=== PATIENT | female | born 1960 | race African-American/Black ===

== ENCOUNTER 2017-07-25 02:08 | Emergency (ER) | payer OTHER ==
[~2017-07-25] VITALS: Ht 160 cm; Wt 78.0 kg
[2017-07-25] MEDS ORDERED: LORazepam Inj 2mg/ml 1ml IV ONE (02:30)
[2017-07-25] MEDS ORDERED: OMEPRAZOLE40 M1 ORAL (02:39)
[2017-07-25] MEDS ORDERED: HYDROCHLOROTH12.5 M2 ORAL (02:39)
[2017-07-25] MEDS ORDERED: VITAMIN B-121000 MCG PO (02:39)
[2017-07-25] MEDS ORDERED: FOLIC ACID1 MG ORAL (02:39)
[2017-07-25] MEDS ORDERED: FERROUS SULFAT325 MG ORAL (02:39)
[2017-07-25 03:20] LABS: MEAN CORPUSCULAR HEMOGLOBIN 33.2 PG (27.0-31.0); MEAN CORPUSCULAR HGB CONC 32.9 G/DL (32.0-36.0); MEAN CORPUSCULAR VOLUME 101 FL (80-99); MEAN PLATELET VOLUME 8.8 FL (6.5-10.1); PLATELET COUNT 99 K/UL (150-450); RED BLOOD COUNT 4.05 M/UL (4.20-5.40); RED CELL DISTRIBUTION WIDTH 14.5 % (11.6-14.8); WHITE BLOOD COUNT 4.6 K/UL (4.8-10.8)
[2017-07-25 03:21] LABS: APPEARANCE,URINE CLOUDY; KETONES,URINE NEGATIVE (NEGATIVE); LEUKOCYTE ESTERASE ,URINE 2+ (NEGATIVE); NITRITE,URINE POSITIVE (NEGATIVE); PH,URINE 6 (4.5-8.0); PROTEIN,URINE NEGATIVE (NEGATIVE); UROBILINOGEN,URINE NORMAL MG/DL (0.0-1.0)
[2017-07-25 03:29] LABS: ANION GAP 9 mmol/L (5-15); CALCIUM 8.8 MG/DL (8.5-10.1); CARBON DIOXIDE 22 MMOL/L (21-32); CHLORIDE 107 MMOL/L (98-107); CREATININE 1.1 MG/DL (0.55-1.30); GLOMERULAR FILTRATION RATE > 60 mL/min (>60); POTASSIUM 3.3 MMOL/L (3.5-5.1); SODIUM 138 MMOL/L (136-145)
[2017-07-25 03:33] VITALS: BP 118/74
[2017-07-25 03:34] LABS: BACTERIA,URINE MANY /HPF; SQUAMOUS EPITHELIAL CELL,UR FEW /LPF (NONE/OCC); WBC,URINE 20-30 /HPF (0 - 2)
[2017-07-25 03:41] LABS: EOSINOPHILS % (MANUAL) 2 % (0-3); LYMPHOCYTES % (MANUAL) 21 % (20-45); NEUTROPHILS % (MANUAL) 69 % (45-75); TOTAL CELLS COUNTED 100
[2017-07-25 03:42] LABS: BAND NEUTROPHILS % (MANUAL) 0 % (0-8); BASOPHILS % (MANUAL) 0 % (0-2); PLATELET ESTIMATE DECREASED; PLATELET MORPHOLOGY NORMAL
[2017-07-25 03:43] LABS: ALANINE AMINOTRANSFERASE 93 U/L (12-78); ALBUMIN/GLOBULIN RATIO 0.4 (1.0-2.7); ASPARTATE AMINO TRANSFERASE 115 U/L (15-37); CKMB 1.6 NG/ML (0.0-3.6); TOTAL PROTEIN 8.5 G/DL (6.4-8.2)
[2017-07-25 03:45] LABS: BILIRUBIN,DIRECT 1.9 MG/DL (0.0-0.3)
[2017-07-25] MEDS ORDERED: cefTRIAXone 1 GM in NS 55 ML IVPB ONE (03:45)
[2017-07-25 05:29] VITALS: BP 107/66
[2017-07-25] MEDS ORDERED: MACROBID100 MG ORAL (05:37)
--- NOTE | 2017-07-25 05:37 | Emergency Room Report ---
History of Present Illness General Chief Complaint: Chest Pain Source: Patient Present Illness HPI Is a 56-year-old female with history high blood pressure and pacemaker insertion. She presents with chief complaint of pain over the pacemaker site and generalized pain. She said she was very anxious because when she tried opening her car door handle broke off. That sent her into anxiety during complaining of generalized pain. His been ongoing for the last several hours for denies any nausea vomiting. Denies any fever or chills. Pain is 10 out of 10. No exertional component. Allergies: Coded Allergies: CODEINE (Verified Allergy, Unknown, 07/25/17) Patient History Past Medical History: see triage record, old chart reviewed, HTN Past Surgical History: pacemaker Pertinent Family History: none Social History: Reports: smoking Last Menstrual Period: surgical hysterectomy Now: No Immunizations: other Reviewed Nursing Documentation: PMH: Agreed, PSxH: Agreed Nursing Documentation-PMH Hx Hypertension: Yes Hx Pacemaker: Yes Hx Gastrointestinal Problems: Yes - HEP C,GI BLEED Review of Systems Eye: Denies: eye pain, blurred vision ENT: Denies: ear pain, nose congestion, throat swelling Respiratory: Denies: cough, shortness of breath Cardiovascular: Reports: chest pain, Denies: palpitations Gastrointestinal: Denies: abdominal pain, diarrhea, nausea, vomiting Musculoskeletal: Denies: back pain, joint pain Skin: Denies: rash Neurological: Denies: headache, numbness Endocrine: Denies: increased thirst, increased urine Hematologic/Lymphatic: Denies: easy bruising All Other Systems: negative except mentioned in HPI Physical Exam Vital Signs Date Time Temp Pulse Resp B/P (MAP) Pulse Ox O2 Delivery O2 Flow Rate FiO2 07/25/17 02:22 99.0 88 15 162/106 100 Room Air vitals with high blood pressure Sp02 EP Interpretation: reviewed, normal General Appearance: well appearing, no apparent distress, alert Head: normocephalic, atraumatic Eyes: bilateral eye PERRL, bilateral eye EOMI ENT: hearing grossly normal, normal pharynx Neck: full range of motion, supple, no meningismus Respiratory: chest non-tender, lungs clear, normal breath sounds Cardiovascular #1: regular rate, rhythm, no murmur Gastrointestinal: normal bowel sounds, non tender, no mass, no organomegaly, no bruit, non-distended Musculoskeletal: back normal, gait/station normal, normal range of motion Neurologic: alert, oriented x3 Psychiatric: anxious - Crying Skin: warm/dry Medical Decision Making Diagnostic Impression: Primary Impression: Chest pain Qualified Codes: R07.9 - Chest pain, unspecified Additional Impressions: Panic attack Cocaine abuse UTI (urinary tract infection) Qualified Codes: N30.00 - Acute cystitis without hematuria ER Course Patient with atypical chest pain. No evidence of ACS, PE, dissection. She is sleeping comfortably after Ativan. No longer having pain. We'll discharge home. Lab Results Impression labs unremarkable EKG Diagnostic Results Rate: normal Rhythm: NSR ST Segments: no acute changes ASA given to the pt in ED: Yes Rhythm Strip Diag. Results Rhythm Strip Time: 05:36 EP Interpretation: yes Rate: 78 Rhythm: NSR, no PVC's, no ectopy Chest X-Ray Diagnostic Results Chest X-Ray Diagnostic Results : Chest X-Ray Ordered: Yes # of Views/Limited/Complete: 1 View Indication: Chest Pain EP Interpretation: Yes Interpretation: no consolidation, no effusion, no pneumothorax, no acute cardiopulmonary disease Impression: No acute disease Electronically Signed by: Ace Belle MD Last Vital Signs Date Time Temp Pulse Resp B/P (MAP) Pulse Ox O2 Delivery O2 Flow Rate FiO2 07/25/17 05:29 99.0 76 20 107/66 97 Room Air Status: improved Disposition: HOME, SELF-CARE Condition: Stable Scripts Nitrofurantoin Monohyd/M-Cryst (Nitrofurantoin [place]-Mcr 100 mg) 100 Mg Capsule 100 MG ORAL Q12H, #14 CAP Prov: ACE BELLE M.D. 07/25/17 Referrals: [facility] (PCP) Patient Instructions: Nonspecific Chest Pain Additional Instructions: Stop using drugs. Followup with your Dr. in 2-3 days. Return if worse. take your blood pressure medication. ACE BELLE M.D. Jul 25, 2017 05:37
[2017-07-25 05:49] VITALS: BP 107/66
--- NOTE | 2017-07-25 09:29 | Diagnostic Imaging Report ---
Indication: Chest pain Technique: XRAY CHEST 1 V Comparison: None Findings: Cardiac silhouette is borderline prominent. There is a left chest pacemaker. Atherosclerotic changes are seen. There is no consolidation or pleural effusion. Degenerative changes of the spine are noted. Impression: No acute cardiopulmonary disease. Left chest pacemaker.
--- NOTE | 2017-07-25 15:28 | Cardiology Report ---
APPROVED REPORT EKG Measurement Heart [id number] Normal sinus rhythm Biatrial enlargement Abnormal ECG
== END 2017-07-25 05:59 | disposition home or self-care (01) ==
LOC: EMR 03:00
DX: R07.89 Other chest pain (principal); F41.0 Panic disorder [episodic paroxysmal anxiety]; F14.10 Cocaine abuse, uncomplicated; N39.0 Urinary tract infection, site not specified; I10 Essential (primary) hypertension; Z95.0 Presence of cardiac pacemaker; Z88.6 Allergy status to analgesic agent
CPT/HCPCS: 36415; 71010; 80053; 80307; 81003; 82248; 82550; 82553; 84484; 85007; 85025; 87086; 87181; 93005; 96365; 96375; 99284; J0696; 96361; 96374

== ENCOUNTER 2017-09-03 20:14 | Inpatient (IN) | payer OTHER ==
[~2017-09-03] VITALS: Ht 165.1 cm; Wt 79.8 kg
[~2017-09-03 20:14] MED LIST: FERROUS SULFAT325 MG ORAL; FOLIC ACID1 MG ORAL; HYDROCHLOROTH12.5 M2 ORAL; MACROBID100 MG ORAL; OMEPRAZOLE40 M1 ORAL; VITAMIN B-121000 MCG PO
[2017-09-03 21:35] VITALS: BP 130/77
--- NOTE | 2017-09-03 21:35 | Emergency Room Report ---
History of Present Illness General Chief Complaint: Gastrointestinal Bleed Source: Patient Present Illness HPI 57-year-old female presents ED for evaluation. States she's been noticing rectal bleeding the last 3 days. Has history of liver cirrhosis. Also notes nosebleed. Patient states she is not compliant with her medications for her liver cirrhosis. Did not take any blood thinners. Denies fevers or chills. Chest pain. States she's having some cramping abdominal pain as well. 10 out of 10, nonradiating. No other aggravating relieving factors. Denies any other associated symptoms Allergies: Coded Allergies: CODEINE (Verified Allergy, Unknown, 07/25/17) Patient History Past Medical History: HTN Past Surgical History: none, pacemaker Pertinent Family History: none Social History: Denies: smoking, alcohol use, drug use Last Menstrual Period: NA Now: No Immunizations: UTD Reviewed Nursing Documentation: PMH: Agreed, PSxH: Agreed Nursing Documentation-PMH Hx Hypertension: Yes Hx Pacemaker: Yes Hx Gastrointestinal Problems: Yes - HEP C,GI BLEED Review of Systems All Other Systems: negative except mentioned in HPI Physical Exam Vital Signs Date Time Temp Pulse Resp B/P (MAP) Pulse Ox O2 Delivery O2 Flow Rate FiO2 09/03/17 20:26 98.2 Sp02 EP Interpretation: reviewed, normal General Appearance: no apparent distress, alert, GCS 15, non-toxic Head: normocephalic, atraumatic Eyes: bilateral eye normal inspection, bilateral eye PERRL ENT: hearing grossly normal, normal pharynx, no angioedema, normal voice Neck: full range of motion, supple/symm/no masses Respiratory: chest non-tender, lungs clear, normal breath sounds, speaking full sentences Cardiovascular #1: regular rate, rhythm, no edema Cardiovascular #2: 2+ carotid (R), 2+ carotid (L), 2+ radial (R), 2+ radial (L) , 2+ dorsalis pedis (R), 2+ dorsalis pedis (L) Gastrointestinal: normal bowel sounds, non tender, soft, non-distended, no guarding, no rebound Rectal: deferred Genitourinary: normal inspection, no CVA tenderness Musculoskeletal: back normal, gait/station normal, normal range of motion, non- tender Neurologic: alert, oriented x3, responsive, motor strength/tone normal, sensory intact, speech normal Psychiatric: judgement/insight normal, memory normal, mood/affect normal, no suicidal/homicidal ideation Reflexes: 3+ bicep (R), 3+ bicep (L), 3+ tricep (R), 3+ tricep (L), 3+ knee (R) , 3+ knee (L) Skin: normal color, no rash, warm/dry, well hydrated Lymphatic: no adenopathy Medical Decision Making Diagnostic Impression: Primary Impression: LGI bleed Additional Impression: Cirrhosis of liver Qualified Codes: K74.60 - Unspecified cirrhosis of liver ER Course Hospital Course 57-year-old F presents to ED with rectal bleeding Differential diagnoses include: UGIB, LGIB, hemorrhoids Clinical course Patient placed on stretcher. court monitor. After initial history and physical I ordered labs, IV fluids, CT Labs - no leukocytosis, Hb/Hct stable. electrolytes ok, LFTS markedly elevated , coags eleavted EKG - bradycardic, PVCs noted CT A/P - abdominal varices, cirrhosis. given rocephin given h/o cirrhosis Case discussed with Dr. Tipton and he agreed to accept the patient to his service for further care and support I feel this is a highly complex case requiring extensive working including EKG/ Rhythm strip, Xray/CT/US, Blood/urine lab work, repeat exams while in ED, and administration of strong opiates/narcotics for pain control, admission to hospital or close patient follow up. Diagnosis - LGIB, cirrhosis of liver Patient admitted to telemetry in serious condition Labs Test 09/03/17 21:25 White Blood Count 5.7 K/UL (4.8-10.8) Red Blood Count 4.58 M/UL (4.20-5.40) Hemoglobin 14.9 G/DL (12.0-16.0) Hematocrit 47.7 % (37.0-47.0) Mean Corpuscular Volume 104 FL (80-99) Mean Corpuscular Hemoglobin 32.5 PG (27.0-31.0) Mean Corpuscular Hemoglobin Concent 31.2 G/DL (32.0-36.0) Red Cell Distribution Width 14.3 % (11.6-14.8) Platelet Count 82 K/UL (150-450) Mean Platelet Volume 10.3 FL (6.5-10.1) Neutrophils (%) (Auto) % (45.0-75.0) Lymphocytes (%) (Auto) % (20.0-45.0) Monocytes (%) (Auto) % (1.0-10.0) Eosinophils (%) (Auto) % (0.0-3.0) Basophils (%) (Auto) % (0.0-2.0) Differential Total Cells Counted 100 Neutrophils % (Manual) 65 % (45-75) Lymphocytes % (Manual) 19 % (20-45) Monocytes % (Manual) 10 % (1-10) Eosinophils % (Manual) 3 % (0-3) Basophils % (Manual) 3 % (0-2) Band Neutrophils 0 % (0-8) Platelet Estimate Decreased Platelet Morphology Normal Prothrombin Time 14.7 SEC (9.30-11.50) Prothromb Time International Ratio 1.4 (0.9-1.1) Activated Partial Thromboplast Time 26 SEC (23-33) Urine Color Yellow Urine Appearance Clear Urine pH 5 (4.5-8.0) Urine Specific [place] 1.010 (1.005-1.035) Urine Protein Negative (NEGATIVE) Urine Glucose (UA) 4+ (NEGATIVE) Urine Ketones Negative (NEGATIVE) Urine Occult Blood 1+ (NEGATIVE) Urine Nitrite Negative (NEGATIVE) Urine Bilirubin Negative (NEGATIVE) Urine Urobilinogen 1 MG/DL (0.0-1.0) Urine Leukocyte Esterase Negative (NEGATIVE) Urine RBC 0-2 /HPF (0 - 2) Urine WBC 0-2 /HPF (0 - 2) Urine Squamous Epithelial Cells Few /LPF (NONE/OCC) Urine Bacteria Few /HPF (NONE) Sodium Level 138 MMOL/L (136-145) Potassium Level 4.5 MMOL/L (3.5-5.1) Chloride Level 107 MMOL/L (98-107) Carbon Dioxide Level 25 MMOL/L (21-32) Anion Gap 6 mmol/L (5-15) Blood Urea Nitrogen 11 mg/dL (7-18) Creatinine 1.2 MG/DL (0.55-1.30) Estimat Glomerular Filtration Rate 56.2 mL/min (>60) Glucose Level 321 MG/DL (74-106) Calcium Level 9.0 MG/DL (8.5-10.1) Total Bilirubin 3.7 MG/DL (0.2-1.0) Direct Bilirubin 1.4 MG/DL (0.0-0.3) Aspartate Amino Transf (AST/SGOT) 82 U/L (15-37) Alanine Aminotransferase (ALT/SGPT) 93 U/L (12-78) Alkaline Phosphatase 375 U/L (46-116) Ammonia 16 umol/L (11-32) Troponin I 0.007 ng/mL (0.000-0.056) Total Protein 9.3 G/DL (6.4-8.2) Albumin 2.4 G/DL (3.4-5.0) Globulin 6.9 g/dL Albumin/Globulin Ratio 0.3 (1.0-2.7) Lipase 591 U/L (73-393) EKG Diagnostic Results Rate: normal Rhythm: NSR ST Segments: other - PVCS ASA given to the pt in ED: No Rhythm Strip Diag. Results EP Interpretation: yes Rhythm: NSR, no ectopy CT/MRI/US Diagnostic Results CT/MRI/US Diagnostic Results : Imaging Test Ordered: CT A/P Impression cirrhosis, abdominal varices Last Vital Signs Date Time Temp Pulse Resp B/P (MAP) Pulse Ox O2 Delivery O2 Flow Rate FiO2 09/03/17 20:26 98.2 Status: improved Disposition: ADMITTED INPATIENT Condition: Serious Referrals: [facility] (PCP) MICHAEL CARTAGENA M.D. Sep 03, 2017 21:35
[2017-09-03 22:12] LABS: HEMATOCRIT 47.7 % (37.0-47.0); HEMOGLOBIN 14.9 G/DL (12.0-16.0); MEAN CORPUSCULAR VOLUME 104 FL (80-99); PLATELET COUNT 82 K/UL (150-450); RED BLOOD COUNT 4.58 M/UL (4.20-5.40); RED CELL DISTRIBUTION WIDTH 14.3 % (11.6-14.8); WHITE BLOOD COUNT 5.7 K/UL (4.8-10.8)
[2017-09-03 22:15] LABS: APPEARANCE,URINE CLEAR; BILIRUBIN, URINE NEGATIVE (NEGATIVE); GLUCOSE, URINE (UA) 4+ (NEGATIVE); KETONES,URINE NEGATIVE (NEGATIVE); LEUKOCYTE ESTERASE ,URINE NEGATIVE (NEGATIVE); NITRITE,URINE NEGATIVE (NEGATIVE); PH,URINE 5 (4.5-8.0); PROTEIN,URINE NEGATIVE (NEGATIVE); UROBILINOGEN,URINE 1 MG/DL (0.0-1.0)
[2017-09-03 22:18] LABS: COLOR,URINE YELLOW
[2017-09-03 22:19] LABS: INR 1.4 (0.9-1.1)
[2017-09-03 22:24] LABS: AMMONIA 16 umol/L (11-32)
[2017-09-03 22:27] LABS: ANION GAP 6 mmol/L (5-15); BLOOD UREA NITROGEN 11 mg/dL (7-18); CARBON DIOXIDE 25 MMOL/L (21-32); CHLORIDE 107 MMOL/L (98-107); CREATININE 1.2 MG/DL (0.55-1.30); POTASSIUM 4.5 MMOL/L (3.5-5.1); SODIUM 138 MMOL/L (136-145)
[2017-09-03 22:42] LABS: ALANINE AMINOTRANSFERASE 93 U/L (12-78); ALBUMIN 2.4 G/DL (3.4-5.0); ALBUMIN/GLOBULIN RATIO 0.3 (1.0-2.7); ALKALINE PHOSPHATASE 375 U/L (46-116); ASPARTATE AMINO TRANSFERASE 82 U/L (15-37); BILIRUBIN,TOTAL 3.7 MG/DL (0.2-1.0)
[2017-09-03 22:43] LABS: BILIRUBIN,DIRECT 1.4 MG/DL (0.0-0.3)
[2017-09-03] MEDS ORDERED: cefTRIAXone 1 GM in NS 55 ML IVPB ONE (23:00)
[2017-09-03] MEDS ORDERED: Phytonadione 10 MG in D5W 55 ML IVPB ONE (23:15)
[2017-09-03] MEDS ORDERED: Nitroglycerin Subl 0.4mg tab SL PRN (23:15)
[2017-09-03] MEDS ORDERED: Mylanta II UD 30ml ORAL PRN (23:15)
[2017-09-03] MEDS ORDERED: Morphine Sulfate 2mg/ml Inj IVP PRN (23:15)
[2017-09-03] MEDS ORDERED: Miralax 17gm pkt ORAL PRN (23:15)
[2017-09-04] MEDS ORDERED: SPIRONOLACTONE25 MG ORAL (00:08)
[2017-09-04] MEDS ORDERED: AMOXICILLIN500 MG ORAL (00:08)
[2017-09-04 00:10] VITALS: BP 157/89
[2017-09-04 00:40] VITALS: BP 121/84
[2017-09-04] MEDS ORDERED: Phytonadione 10 mg/mL 1ml amp ONE (01:29)
[2017-09-04] MEDS ORDERED: NS 55ml IV ONE (01:29)
[2017-09-04] MEDS: D5NS 1,000 ML IV SCH ×3 (01:46→19:02)
[2017-09-04 04:00] VITALS: BP 117/67
--- NOTE | 2017-09-04 06:35 | General Progress Note ---
Assessment/Plan Problem List: (1) Gastrointestinal hemorrhage ICD Codes: K92.2 - Gastrointestinal hemorrhage, unspecified SNOMED: 45026191 (2) Cirrhosis of liver ICD Codes: K74.60 - Unspecified cirrhosis of liver SNOMED: 96621800 Qualifiers: Qualified Codes: K74.60 - Unspecified cirrhosis of liver (3) LGI bleed ICD Codes: K92.2 - Gastrointestinal hemorrhage, unspecified SNOMED: 55304306 Assessment/Plan octreotide protonix ammonia level monitor H&H and INR plan EGD and colonoscopy on Wednesday Subjective ROS Limited/Unobtainable: Yes Allergies: Coded Allergies: CODEINE (Verified Allergy, Unknown, 07/25/17) Subjective no event over night Objective Last 24 Hour Vital Signs Date Time Temp Pulse Resp B/P (MAP) Pulse Ox O2 Delivery O2 Flow Rate FiO2 09/04/17 04:00 98.1 60 20 117/67 98 Nasal Cannula 09/04/17 04:00 61 09/04/17 00:40 97.0 56 16 121/84 99 09/04/17 00:25 98.2 63 16 157/89 100 Room Air 09/04/17 00:10 98.2 63 16 157/89 100 Room Air 09/03/17 21:35 98.2 42 18 130/77 99 09/03/17 20:26 98.2 Laboratory Tests 09/03/17 21:25: White Blood Count 5.7, Red Blood Count 4.58, Hemoglobin 14.9, Hematocrit 47.7H, Mean Corpuscular Volume 104H, Mean Corpuscular Hemoglobin 32.5H, Mean Corpuscular Hemoglobin Concent 31.2L, Red Cell Distribution Width 14.3, Platelet Count 82L, Mean Platelet Volume 10.3H, Neutrophils (%) (Auto) , Lymphocytes (%) (Auto) , Monocytes (%) (Auto) , Eosinophils (%) (Auto) , Basophils (%) (Auto) , Differential Total Cells Counted 100, Neutrophils % ( Manual) 65, Lymphocytes % (Manual) 19L, Monocytes % (Manual) 10, Eosinophils % ( Manual) 3, Basophils % (Manual) 3H, Band Neutrophils 0, Platelet Estimate DecreasedL, Platelet Morphology Normal, Prothrombin Time 14.7H, Prothromb Time International Ratio 1.4H, Activated Partial Thromboplast Time 26, Urine Color Yellow, Urine Appearance Clear, Urine pH 5, Urine Specific [place] 1.010, Urine Protein Negative, Urine Glucose (UA) 4+H, Urine Ketones Negative, Urine Occult Blood 1+H, Urine Nitrite Negative, Urine Bilirubin Negative, Urine Urobilinogen 1H, Urine Leukocyte Esterase Negative, Urine RBC 0-2, Urine WBC 0-2, Urine Squamous Epithelial Cells Few, Urine Bacteria Few, Sodium Level 138, Potassium Level 4.5, Chloride Level 107, Carbon Dioxide Level 25, Anion Gap 6, Blood Urea Nitrogen 11, Creatinine 1.2, Estimat Glomerular Filtration Rate 56.2, Glucose Level 321H, Calcium Level 9.0, Total Bilirubin 3.7H, Direct Bilirubin 1.4H, Aspartate Amino Transf (AST/SGOT) 82H, Alanine Aminotransferase (ALT/SGPT) 93H, Alkaline Phosphatase 375H, Ammonia 16, Troponin I 0.007, Total Protein 9.3H, Albumin 2.4L, Globulin 6.9, Albumin/Globulin Ratio 0.3L, Lipase 591H Height (Feet): 5 Height (Inches): 3.00 Weight (Pounds): 173 General Appearance: alert EENT: normal ENT inspection Neck: supple Cardiovascular: normal rate Respiratory/Chest: decreased breath sounds Abdomen: normal bowel sounds, non tender, soft Extremities: non-tender ERNST DELUNA Sep 04, 2017 06:35
--- NOTE | 2017-09-04 08:49 | History and Physical ---
History of Present Illness General Date patient seen: Sep 04, 2017 Time patient seen: 07:30 Reason for Hospitalization: Gastrointestinal Bleed Present Illness HPI 57-y/old female with PMH of liver cirrhosis, hep C, prediabetes, HTN , pacemaker presented to ED with c/o rectal bleeding for the last 3 days. Reports nose bleeding as well Not compliant with medications for liver cirrhosis No blood thinners denied f/c/ denied CP , SOB reported abdominal pain 10/10, non radiating with some nausea Lab work revealed elevated LFT and bili, low PLT count INR-1.4 lipase-591 CT A/P with evidence of abdominal varices and liver cirrhosis troponin WNL ECG SB with frequent PVC patient was admitted for further management Allergies: Coded Allergies: CODEINE (Verified Allergy, Unknown, 07/25/17) Medication History Scheduled Amoxicillin* (Amoxil*), 500 MG ORAL EVERY 6 HOURS, (Reported) Cyanocobalamin (Vitamin B-12) (Vitamin B-12), 1,000 MCG PO DAILY, (Reported) Ferrous Sulfate* (Ferrous Sulfate*), 325 MG ORAL DAILY, (Reported) Folic Acid* (Folic Acid*), 1 MG ORAL DAILY, (Reported) Hydrochlorothiazide* (Hydrochlorothiazide*), 12.5 MG ORAL DAILY, (Reported) Nitrofurantoin Monohyd/M-Cryst (Nitrofurantoin [place]-Mcr 100 mg), 100 MG ORAL Q12H Omeprazole (Omeprazole), 40 MG ORAL DAILY, (Reported) Spironolactone* (Aldactone*), 25 MG ORAL DAILY, (Reported) Patient History History Provided By: Patient Healthcare decision maker Resuscitation status Full Code Advanced Directive on File No Past Medical/Surgical History Past Medical/Surgical History: (1) Cirrhosis of liver (2) Pacemaker (3) HTN (hypertension) (4) Hepatitis C Review of Systems Constitutional: Reports: weakness Eye: Reports: no symptoms ENT: Reports: no symptoms Cardiovascular: Reports: no symptoms, other - HTN pacemaker Gastrointestinal: Reports: see HPI Genitourinary: Reports: no symptoms Musculoskeletal: Reports: no symptoms Skin: Reports: dryness Psychiatric: Reports: no symptoms Neurological: Reports: no symptoms Endocrine: Reports: other - prediabetes Hematologic/Lymphatic: Reports: no symptoms Physical Exam General Appearance: no apparent distress, alert Lines, tubes and drains: peripheral HEENT: normocephalic, atraumatic, anicteric Neck: supple Respiratory/Chest: decreased breath sounds Cardiovascular/Chest: regular rhythm, pacemaker/AICD - L chest pacemaker Abdomen: normal bowel sounds, non tender, soft Neurologic: no motor/sensory deficits, alert, oriented x 3, responsive Musculoskeletal: normal muscle bulk Last 24 Hour Vital Signs Date Time Temp Pulse Resp B/P (MAP) Pulse Ox O2 Delivery O2 Flow Rate FiO2 09/04/17 04:00 98.1 60 20 117/67 98 Nasal Cannula 09/04/17 04:00 61 09/04/17 00:40 97.0 56 16 121/84 99 09/04/17 00:25 98.2 63 16 157/89 100 Room Air 09/04/17 00:10 98.2 63 16 157/89 100 Room Air 09/03/17 21:35 98.2 42 18 130/77 99 09/03/17 20:26 98.2 Laboratory Tests Test 09/03/17 21:25 White Blood Count 5.7 K/UL (4.8-10.8) Red Blood Count 4.58 M/UL (4.20-5.40) Hemoglobin 14.9 G/DL (12.0-16.0) Hematocrit 47.7 % (37.0-47.0) H Mean Corpuscular Volume 104 FL (80-99) H Mean Corpuscular Hemoglobin 32.5 PG (27.0-31.0) H Mean Corpuscular Hemoglobin Concent 31.2 G/DL (32.0-36.0) L Red Cell Distribution Width 14.3 % (11.6-14.8) Platelet Count 82 K/UL (150-450) L Mean Platelet Volume 10.3 FL (6.5-10.1) H Neutrophils (%) (Auto) % (45.0-75.0) Lymphocytes (%) (Auto) % (20.0-45.0) Monocytes (%) (Auto) % (1.0-10.0) Eosinophils (%) (Auto) % (0.0-3.0) Basophils (%) (Auto) % (0.0-2.0) Differential Total Cells Counted 100 Neutrophils % (Manual) 65 % (45-75) Lymphocytes % (Manual) 19 % (20-45) L Monocytes % (Manual) 10 % (1-10) Eosinophils % (Manual) 3 % (0-3) Basophils % (Manual) 3 % (0-2) H Band Neutrophils 0 % (0-8) Platelet Estimate Decreased L Platelet Morphology Normal Prothrombin Time 14.7 SEC (9.30-11.50) H Prothromb Time International Ratio 1.4 (0.9-1.1) H Activated Partial Thromboplast Time 26 SEC (23-33) Urine Color Yellow Urine Appearance Clear Urine pH 5 (4.5-8.0) Urine Specific [place] 1.010 (1.005-1.035) Urine Protein Negative (NEGATIVE) Urine Glucose (UA) 4+ (NEGATIVE) H Urine Ketones Negative (NEGATIVE) Urine Occult Blood 1+ (NEGATIVE) H Urine Nitrite Negative (NEGATIVE) Urine Bilirubin Negative (NEGATIVE) Urine Urobilinogen 1 MG/DL (0.0-1.0) H Urine Leukocyte Esterase Negative (NEGATIVE) Urine RBC 0-2 /HPF (0 - 2) Urine WBC 0-2 /HPF (0 - 2) Urine Squamous Epithelial Cells Few /LPF (NONE/OCC) Urine Bacteria Few /HPF (NONE) Sodium Level 138 MMOL/L (136-145) Potassium Level 4.5 MMOL/L (3.5-5.1) Chloride Level 107 MMOL/L (98-107) Carbon Dioxide Level 25 MMOL/L (21-32) Anion Gap 6 mmol/L (5-15) Blood Urea Nitrogen 11 mg/dL (7-18) Creatinine 1.2 MG/DL (0.55-1.30) Estimat Glomerular Filtration Rate 56.2 mL/min (>60) Glucose Level 321 MG/DL (74-106) H Calcium Level 9.0 MG/DL (8.5-10.1) Total Bilirubin 3.7 MG/DL (0.2-1.0) H Direct Bilirubin 1.4 MG/DL (0.0-0.3) H Aspartate Amino Transf (AST/SGOT) 82 U/L (15-37) H Alanine Aminotransferase (ALT/SGPT) 93 U/L (12-78) H Alkaline Phosphatase 375 U/L (46-116) H Ammonia 16 umol/L (11-32) Troponin I 0.007 ng/mL (0.000-0.056) Total Protein 9.3 G/DL (6.4-8.2) H Albumin 2.4 G/DL (3.4-5.0) L Globulin 6.9 g/dL Albumin/Globulin Ratio 0.3 (1.0-2.7) L Lipase 591 U/L (73-393) H Height (Feet): 5 Height (Inches): 3.00 Weight (Pounds): 173 Medications Current Medications Medications (Trade) Dose Ordered Sig/Jad Route PRN Reason Start Time Stop Time Status Last Admin Dose Admin Acetaminophen (Tylenol) 650 mg Q4H PRN ORAL fever 09/03/17 23:15 10/03/17 23:14 Al Hydroxide/Mg Hydroxide (Mylanta II) 30 ml Q6H PRN ORAL dyspepsia 09/03/17 23:15 10/03/17 23:14 Ceftriaxone Sodium (Rocephin) 1 gm DAILY IM 09/04/17 09:00 09/11/17 08:59 UNV Dextrose (Dextrose 50%) STAT PRN IV Hypoglycemia 09/03/17 23:15 10/03/17 23:14 Dextrose/Sodium Chloride 1,000 ml @ 100 mls/hr Q10H IV 09/03/17 23:02 10/03/17 23:01 09/04/17 01:46 Diphenhydramine HCl (Benadryl) 25 mg Q6H PRN ORAL Itching/Pruritis 09/03/17 23:15 10/03/17 23:14 Morphine Sulfate (Morphine Sulfate) 2 mg EVERY 4 HOURS PRN IVP severe Pain (Pain Scale 7-10) 09/03/17 23:15 09/10/17 23:14 Nitroglycerin (Ntg) 0.4 mg Q5M X 3 DOSES PRN SL Prn Chest Pain 09/03/17 23:15 10/03/17 23:14 Octreotide Acetate 500 mcg/ Sodium Chloride 500 ml @ 50 mls/hr Q10H IV 09/04/17 08:00 10/04/17 07:59 Ondansetron HCl (Zofran) 4 mg Q6H PRN IVP Nausea & Vomiting 09/03/17 23:15 10/03/17 23:14 Pantoprazole (Protonix) 40 mg EVERY 12 HOURS IVP 09/04/17 09:00 10/04/17 08:59 Polyethylene Glycol (Miralax) 17 gm HSPRN PRN ORAL Constipation 09/03/17 23:15 10/03/17 23:14 Temazepam (Restoril) 15 mg HSPRN PRN ORAL Insomnia 09/03/17 23:15 09/10/17 23:14 Assessment/Plan Assessment/Plan ASSESSMENT rectal bleeding liver cirrhosis thrombocytopenia transaminitis coagulopathy abdominal varices elevated lipase Hepatitic C HTN pacemaker prediabetes PLAN OF CARE tele GI follows Protonix bid and and Octreotide gtt EGD for Wednesday monitor HH, transfuse prn IVF NPO ammonia WNL trend LFT, lipase, amylase pain management a/emetic prn venous Duplex BLE O2 HHN prn s/p vit Kx 1 currently normotensive, clsoely monitor BP, no anti HTN meds for now check HgA1c, glucose over 300 this am, on IV with dextrose , still high though for prediabetes? case discussed and evaluated by supervising physician Kyle GriffinHali issa NP Sep 04, 2017 08:49
[2017-09-04] MEDS: Pantoprazole Inj IVP SCH ×2 (09:17→20:48)
[2017-09-04] MEDS: Octreotide Acetate 500 MCG in Sodium Chloride 500ML 499 ML IV SCH ×2 (09:17→18:00)
[2017-09-04 12:00] VITALS: BP 119/75
[2017-09-04] MEDS: cefTRIAXone 1gm/D5W 55ml IVPB SCH ×2 (12:03)
[2017-09-04 16:59] VITALS: BP 132/70
[2017-09-04 20:24] VITALS: BP 117/85
[2017-09-04] MEDS ORDERED: D5NS 1000ml IV ONE (22:44)
[2017-09-04] MEDS ORDERED: Tubing IV Secondary IV ONE (22:44)
[2017-09-05 00:39] VITALS: BP 106/67
[2017-09-05] MEDS: D5NS 1,000 ML IV SCH ×3 (01:44→16:00)
[2017-09-05 04:29] VITALS: BP 132/67
[2017-09-05] MEDS: Octreotide Acetate 500 MCG in Sodium Chloride 500ML 499 ML IV SCH ×2 (04:40→15:01)
[2017-09-05 07:48] VITALS: BP 102/65
--- NOTE | 2017-09-05 07:59 | General Progress Note ---
Assessment/Plan Problem List: (1) Gastrointestinal hemorrhage ICD Codes: K92.2 - Gastrointestinal hemorrhage, unspecified SNOMED: 46090935 (2) Cirrhosis of liver ICD Codes: K74.60 - Unspecified cirrhosis of liver SNOMED: 49917026 Qualifiers: Qualified Codes: K74.60 - Unspecified cirrhosis of liver (3) LGI bleed ICD Codes: K92.2 - Gastrointestinal hemorrhage, unspecified SNOMED: 61689739 Assessment/Plan octreotide protonix ammonia level monitor H&H and INR plan EGD tomorrow per patient she has had colonoscopy last year Subjective ROS Limited/Unobtainable: Yes Allergies: Coded Allergies: CODEINE (Verified Allergy, Unknown, 07/25/17) Subjective no event over night Objective Last 24 Hour Vital Signs Date Time Temp Pulse Resp B/P (MAP) Pulse Ox O2 Delivery O2 Flow Rate FiO2 09/05/17 07:48 97.8 62 20 102/65 96 Room Air 09/05/17 06:43 60 09/05/17 04:29 96.7 61 18 132/67 93 Room Air 09/05/17 00:39 96.8 60 18 106/67 97 Room Air 09/05/17 00:00 60 09/04/17 20:24 97.8 60 18 117/85 97 Room Air 09/04/17 20:00 60 09/04/17 16:59 97.9 59 18 132/70 99 Room Air 09/04/17 16:00 62 09/04/17 12:38 60 09/04/17 12:00 97.7 53 18 119/75 98 09/04/17 12:00 62 09/04/17 08:00 63 Height (Feet): 5 Height (Inches): 3.00 Weight (Pounds): 173 General Appearance: alert EENT: normal ENT inspection Neck: supple Cardiovascular: normal rate Respiratory/Chest: decreased breath sounds Abdomen: normal bowel sounds, non tender, soft Extremities: non-tender ERNST DELUNA Sep 05, 2017 07:59
[2017-09-05] MEDS: Pantoprazole Inj IVP SCH ×2 (09:02→21:09)
[2017-09-05] MEDS: cefTRIAXone 1gm/D5W 55ml IVPB SCH ×2 (11:30)
[2017-09-05 12:00] VITALS: BP 125/89
--- NOTE | 2017-09-05 14:11 | Pulmonology Progress Note ---
Assessment/Plan Assessment/Plan ASSESSMENT rectal bleeding liver cirrhosis thrombocytopenia transaminitis coagulopathy abdominal varices elevated lipase Hepatitic C HTN pacemaker diabetes ( [id number]) PLAN OF CARE on tele GI follows Protonix bid and and Octreotide gtt EGD for Wednesday monitor HH, transfuse prn IVF NPO ammonia WNL trend LFT, lipase, amylase pain management a/emetic prn venous Duplex BLE O2 HHN prn s/p vit Kx 1 currently normotensive, closely monitor BP, no anti HTN meds for now check [id number], dx of DM, will start on oral anti-glycemic after endoscopy , transfer to [facility] floor case discussed and evaluated by supervising physician Subjective Allergies: Coded Allergies: CODEINE (Verified Allergy, Unknown, 07/25/17) Subjective no further episode of GI bleeding GI follows Objective Last 24 Hour Vital Signs Date Time Temp Pulse Resp B/P (MAP) Pulse Ox O2 Delivery O2 Flow Rate FiO2 09/05/17 12:00 71 09/05/17 08:00 64 09/05/17 07:48 97.8 62 20 102/65 96 Room Air 09/05/17 06:43 60 09/05/17 04:29 96.7 61 18 132/67 93 Room Air 09/05/17 00:39 96.8 60 18 106/67 97 Room Air 09/05/17 00:00 60 09/04/17 20:24 97.8 60 18 117/85 97 Room Air 09/04/17 20:00 60 09/04/17 16:59 97.9 59 18 132/70 99 Room Air 09/04/17 16:00 62 Objective General Appearance: no apparent distress, alert Lines, tubes and drains: peripheral HEENT: normocephalic, atraumatic, anicteric Neck: supple Respiratory/Chest: decreased breath sounds Cardiovascular/Chest: regular rhythm, pacemaker/AICD - L chest pacemaker Abdomen: normal bowel sounds, non tender, soft Neurologic: no motor/sensory deficits, alert, oriented x 3, responsive Musculoskeletal: normal muscle bulk Current Medications Medications (Trade) Dose Ordered Sig/Jad Route PRN Reason Start Time Stop Time Status Last Admin Dose Admin Acetaminophen (Tylenol) 650 mg Q4H PRN ORAL fever 09/03/17 23:15 10/03/17 23:14 Al Hydroxide/Mg Hydroxide (Mylanta II) 30 ml Q6H PRN ORAL dyspepsia 09/03/17 23:15 10/03/17 23:14 Ceftriaxone Sodium 1 gm/ Dextrose 55 ml @ 110 mls/hr Q24H IVPB 09/04/17 12:00 09/11/17 11:59 09/05/17 11:30 Dextrose (Dextrose 50%) STAT PRN IV Hypoglycemia 09/03/17 23:15 10/03/17 23:14 Dextrose/Sodium Chloride 1,000 ml @ 100 mls/hr Q10H IV 09/03/17 23:02 10/03/17 23:01 09/05/17 01:44 Diphenhydramine HCl (Benadryl) 25 mg Q6H PRN ORAL Itching/Pruritis 09/03/17 23:15 10/03/17 23:14 Morphine Sulfate (Morphine Sulfate) 2 mg EVERY 4 HOURS PRN IVP severe Pain (Pain Scale 7-10) 09/03/17 23:15 09/10/17 23:14 Nitroglycerin (Ntg) 0.4 mg Q5M X 3 DOSES PRN SL Prn Chest Pain 09/03/17 23:15 10/03/17 23:14 Octreotide Acetate 500 mcg/ Sodium Chloride 500 ml @ 50 mls/hr Q10H IV 09/04/17 08:00 10/04/17 07:59 09/05/17 04:40 Ondansetron HCl (Zofran) 4 mg Q6H PRN IVP Nausea & Vomiting 09/03/17 23:15 10/03/17 23:14 Pantoprazole (Protonix) 40 mg EVERY 12 HOURS IVP 09/04/17 09:00 10/04/17 08:59 09/05/17 09:02 Polyethylene Glycol (Miralax) 17 gm HSPRN PRN ORAL Constipation 09/03/17 23:15 10/03/17 23:14 Temazepam (Restoril) 15 mg HSPRN PRN ORAL Insomnia 09/03/17 23:15 09/10/17 23:14 [facility]acockNorth [facility] HospitalHali Walker NP Sep 05, 2017 14:11
[2017-09-05 15:39] LABS: HEMATOCRIT 39.6 % (37.0-47.0); MEAN CORPUSCULAR VOLUME 105 FL (80-99); PLATELET COUNT 71 K/UL (150-450); RED BLOOD COUNT 3.76 M/UL (4.20-5.40); RED CELL DISTRIBUTION WIDTH 14.1 % (11.6-14.8); WHITE BLOOD COUNT 3.5 K/UL (4.8-10.8)
[2017-09-05 15:45] LABS: INR 1.3 (0.9-1.1)
[2017-09-05] MEDS ORDERED: Nitroglycerin Subl 0.4mg tab SL PRN (15:45)
[2017-09-05 15:54] LABS: ALANINE AMINOTRANSFERASE 70 U/L (12-78); ALBUMIN 1.8 G/DL (3.4-5.0); ALBUMIN/GLOBULIN RATIO 0.3 (1.0-2.7); ALKALINE PHOSPHATASE 137 U/L (46-116); ANION GAP 4 mmol/L (5-15); ASPARTATE AMINO TRANSFERASE 79 U/L (15-37); BILIRUBIN,TOTAL 3.4 MG/DL (0.2-1.0); BLOOD UREA NITROGEN 12 mg/dL (7-18); CALCIUM 6.9 MG/DL (8.5-10.1); CARBON DIOXIDE 25 MMOL/L (21-32); CHLORIDE 109 MMOL/L (98-107); CREATININE 1.4 MG/DL (0.55-1.30); POTASSIUM 4.5 MMOL/L (3.5-5.1); SODIUM 138 MMOL/L (136-145)
[2017-09-05] MEDS ORDERED: Mylanta II UD 30ml ORAL PRN (16:00)
[2017-09-05] MEDS ORDERED: Morphine Sulfate 2mg/ml Inj IVP PRN (16:00)
[2017-09-05 16:10] LABS: BILIRUBIN,DIRECT 1.8 MG/DL (0.0-0.3)
[2017-09-05 16:15] VITALS: BP 111/65
[2017-09-05 20:27] VITALS: BP 138/101
[2017-09-05] MEDS ORDERED: Miralax 17gm pkt ORAL PRN (21:00)
[2017-09-06] VITALS (8 sets, daily range): BP systolic 126–177; BP diastolic 68–97
[2017-09-06] MEDS: Octreotide Acetate 500 MCG in Sodium Chloride 500ML 499 ML IV SCH ×4 (01:00→10:02)
[2017-09-06] MEDS: D5NS 1,000 ML IV SCH ×2 (04:37→11:18)
[2017-09-06 08:20] LABS: INR 1.4 (0.9-1.1)
[2017-09-06 08:24] LABS: ALANINE AMINOTRANSFERASE 76 U/L (12-78); ALBUMIN 1.7 G/DL (3.4-5.0); ALBUMIN/GLOBULIN RATIO 0.3 (1.0-2.7); ALKALINE PHOSPHATASE 126 U/L (46-116); ANION GAP 6 mmol/L (5-15); ASPARTATE AMINO TRANSFERASE 81 U/L (15-37); BILIRUBIN,TOTAL 3.6 MG/DL (0.2-1.0); BLOOD UREA NITROGEN 10 mg/dL (7-18); CALCIUM 6.5 MG/DL (8.5-10.1); CARBON DIOXIDE 23 MMOL/L (21-32); CHLORIDE 110 MMOL/L (98-107); CREATININE 1.1 MG/DL (0.55-1.30); POTASSIUM 3.9 MMOL/L (3.5-5.1); SODIUM 139 MMOL/L (136-145)
[2017-09-06 08:28] LABS: BILIRUBIN,DIRECT 1.9 MG/DL (0.0-0.3)
[2017-09-06 08:32] LABS: AMYLASE 74 U/L (25-115)
[2017-09-06] MEDS: Pantoprazole Inj IVP SCH (09:31)
[2017-09-06 09:53] LABS: HEMATOCRIT 37.1 % (37.0-47.0); HEMOGLOBIN 12.3 G/DL (12.0-16.0); MEAN CORPUSCULAR VOLUME 103 FL (80-99); PLATELET COUNT 65 K/UL (150-450); RED BLOOD COUNT 3.62 M/UL (4.20-5.40); WHITE BLOOD COUNT 3.5 K/UL (4.8-10.8)
--- NOTE | 2017-09-06 11:43 | Pre-Procedure Note/Attestation ---
Pre-Procedure Note/Attestation Complete Prior to Procedure Planned Procedure: not applicable Procedure Narrative: egd Indications for Procedure Pre-Operative Diagnosis: gib Attestation I attest that I discussed the nature of the procedure; its benefits; risks and complications; and alternatives (and the risks and benefits of such alternatives ), prior to the procedure, with the patient (or the patient's legal sales utility representative). I attest that, if there was a reasonable possibility of needing a blood transfusion, the patient (or the patient's legal sales utility representative) was given the [facility] standardized written summary, pursuant to the Ralph Carmen Blood Safety Act ([place] Health and Safety Code # 1645, as amended). I attest that I re-evaluated the patient just prior to the surgery and that there has been no change in the patient's H&P, except as documented below: ERNST DELUNA Sep 06, 2017 11:43
[2017-09-06] MEDS ORDERED: cefTRIAXone 1 GM in D5W 55 ML IVPB SCH (12:00)
[2017-09-06] MEDS ORDERED: NS 500ML IV ONE (12:10)
--- NOTE | 2017-09-06 12:23 | Endoscopy Procedure Note ---
Endoscopy Procedure Note Indication for Procedure: gib Procedures Performed: EGD Operative Findings/Diagnosis: gastritis Specimen: none Pt Tolerated Procedure Well: Yes Estimated Blood Loss: none Anesthesiologist: michael Anesthesia: MAC Implant(s) used?: No 50 yrs or older w/o bx or poly: Not Applicable 10yrs. F/U not recommended: Not Applicable ERNST DELUNA Sep 06, 2017 12:23
--- NOTE | 2017-09-06 12:26 | Anethesia Preoperative Eval ---
Anesthesia Pre-op PMH/ROS General Date of Evaluation: Sep 06, 2017 Time of Evaluation: 12:00 Anesthesiologist: Alden ASA Score: ASA 3 Mallampati Score Class I : Soft palate, uvula, fauces, pillars visible Class II: Soft palate, uvula, fauces visible Class III: Soft palate, base of uvula visible Class IV: Only hard plate visible Mallampati Classification: Class II Surgeon: Kirstin Diagnosis: GI bleed Surgical Procedure: EGD Family History: no anesthesia problems Allergies: Coded Allergies: CODEINE (Verified Allergy, Unknown, 07/25/17) Medications: see eMAR Past Medical History Cardiovascular: Reports: HTN, arrhythmia Gastrointestinal/Genitourinary: Reports: other - Hep C, cirrhosis Endocrine: Reports: DM - pre diabetic PMH Narrative: HTN, Hep C, cirrhosis, s/p PPM, hematochezia PSxH Narrative: PPM, colonoscopy Anesthesia Pre-op Phys. Exam Physician Exam Last Vital Signs Date Time Temp Pulse Resp B/P (MAP) Pulse Ox O2 Delivery O2 Flow Rate FiO2 09/06/17 08:00 97.8 61 20 129/88 97 Room Air Constitutional: NAD Neurologic: CN 2-12 intact Cardiovascular: RRR, no M/R/G Respiratory: CTA Gastrointestinal: S/NT/ND Airway Exam Mallampati Score: Class II MO: full ROM: full Dentures: upper, lower Anesthesia Pre-op A/P Labs Hematology Test 09/05/17 14:15 09/06/17 09:30 White Blood Count 3.5 K/UL (4.8-10.8) L 3.5 K/UL (4.8-10.8) L Red Blood Count 3.76 M/UL (4.20-5.40) L 3.62 M/UL (4.20-5.40) L Hemoglobin 12.0 G/DL (12.0-16.0) 12.3 G/DL (12.0-16.0) Hematocrit 39.6 % (37.0-47.0) 37.1 % (37.0-47.0) Mean Corpuscular Volume 105 FL (80-99) H 103 FL (80-99) H Mean Corpuscular Hemoglobin 32.0 PG (27.0-31.0) H 34.1 PG (27.0-31.0) H Mean Corpuscular Hemoglobin Concent 30.4 G/DL (32.0-36.0) L 33.2 G/DL (32.0-36.0) Red Cell Distribution Width 14.1 % (11.6-14.8) 14.0 % (11.6-14.8) Platelet Count 71 K/UL (150-450) L 65 K/UL (150-450) L Mean Platelet Volume 10.0 FL (6.5-10.1) 10.3 FL (6.5-10.1) H Neutrophils (%) (Auto) % (45.0-75.0) % (45.0-75.0) Lymphocytes (%) (Auto) % (20.0-45.0) % (20.0-45.0) Monocytes (%) (Auto) % (1.0-10.0) % (1.0-10.0) Eosinophils (%) (Auto) % (0.0-3.0) % (0.0-3.0) Basophils (%) (Auto) % (0.0-2.0) % (0.0-2.0) Differential Total Cells Counted 100 100 Neutrophils % (Manual) 55 % (45-75) 44 % (45-75) L Lymphocytes % (Manual) 27 % (20-45) 29 % (20-45) Monocytes % (Manual) 11 % (1-10) H 17 % (1-10) H Eosinophils % (Manual) 7 % (0-3) H 9 % (0-3) H Basophils % (Manual) 0 % (0-2) 1 % (0-2) Band Neutrophils 0 % (0-8) 0 % (0-8) Platelet Estimate Decreased L Decreased L Platelet Morphology Normal Normal Red Blood Cell Morphology Normal Normal Coagulation Test 09/05/17 15:00 09/06/17 07:00 09/06/17 09:30 Prothrombin Time 13.8 SEC (9.30-11.50) H 15.2 SEC (9.30-11.50) H Prothromb Time International Ratio 1.3 (0.9-1.1) H 1.4 (0.9-1.1) H Activated Partial Thromboplast Time 36 SEC (23-33) H Chemistry Test 09/05/17 15:00 09/05/17 21:00 09/06/17 07:00 Sodium Level 138 MMOL/L (136-145) 139 MMOL/L (136-145) Potassium Level 4.5 MMOL/L (3.5-5.1) 3.9 MMOL/L (3.5-5.1) Chloride Level 109 MMOL/L (98-107) H 110 MMOL/L (98-107) H Carbon Dioxide Level 25 MMOL/L (21-32) 23 MMOL/L (21-32) Anion Gap 4 mmol/L (5-15) L 6 mmol/L (5-15) Blood Urea Nitrogen 12 mg/dL (7-18) 10 mg/dL (7-18) Creatinine 1.4 MG/DL (0.55-1.30) H 1.1 MG/DL (0.55-1.30) Estimat Glomerular Filtration Rate 47.1 mL/min (>60) > 60 mL/min (>60) Glucose Level 308 MG/DL (74-106) H 199 MG/DL (74-106) #H Hemoglobin A1c 7.7 % (4.3-6.0) H Calcium Level 6.9 MG/DL (8.5-10.1) L 6.5 MG/DL (8.5-10.1) L Total Bilirubin 3.4 MG/DL (0.2-1.0) H 3.6 MG/DL (0.2-1.0) H Direct Bilirubin 1.8 MG/DL (0.0-0.3) H 1.9 MG/DL (0.0-0.3) H Aspartate Amino Transf (AST/SGOT) 79 U/L (15-37) H 81 U/L (15-37) H Alanine Aminotransferase (ALT/SGPT) 70 U/L (12-78) 76 U/L (12-78) Alkaline Phosphatase 137 U/L (46-116) H 126 U/L (46-116) H Ammonia umol/L (11-32) 150 umol/L (11-32) H Total Protein 7.6 G/DL (6.4-8.2) 7.2 G/DL (6.4-8.2) Albumin 1.8 G/DL (3.4-5.0) L 1.7 G/DL (3.4-5.0) L Globulin 5.8 g/dL 5.5 g/dL Albumin/Globulin Ratio 0.3 (1.0-2.7) L 0.3 (1.0-2.7) L Amylase Level 74 U/L (25-115) Lipase 270 U/L (73-393) Risk Assessment & Plan Assessment: Hematochezia Plan: GA, TIFABIÁN Status Change Before Surgery: No Pre-Antibiotics Drug: None WILFREDO ETIENNE M.D. Sep 06, 2017 12:26
--- NOTE | 2017-09-06 12:27 | Immediate Post-Op Evaluation ---
Immediate Post-Op Evalulation Immediate Post-Op Evalulation Procedure: EGD Date of Evaluation: Sep 06, 2017 Time of Evaluation: 12:45 IV Fluids: 200 Blood Pressure Systolic: 177 Pulse Rate: 61 Respiratory Rate: 22 O2 Sat by Pulse Oximetry: 100 Pain Score (1-10): 0 Nausea: No Vomiting: No Complications No complication Patient Status: awake, patent, none Hydration Status: adequate Drug: None WILFREDO ETIENNE M.D. Sep 06, 2017 12:27
[2017-09-06] MEDS ORDERED: NS 500ML ONE (14:34)
[2017-09-06] MEDS ORDERED: Propofol 200mg/20ml IV ONE (14:34)
--- NOTE | 2017-09-06 19:15 | Procedure Note ---
DATE OF PROCEDURE: 09/06/2017 SURGEON: Bhanu Fulton M.D. REFERRING PHYSICIAN: Blaze Tipton M.D. PROCEDURE: Upper endoscopy. ANESTHESIOLOGIST: Ralph Ruano M.D. INSTRUMENT: Olympus adult flexible upper endoscope. INDICATION: Gastrointestinal bleeding. The procedure, risks, benefits, and possible consequences, including hemorrhage, aspiration, perforation and infection, and alternative treatments, were explained to the patient/legal guardian by Dr. Bhanu Fulton and the patient/legal guardian understood and accepted these risks. PROCEDURE: After informed consent was obtained and the patient was adequately sedated, Olympus upper endoscope was advanced from mouth into the stomach. Unfortunately, the patient had stomach full of solid food. So, this procedure was limited and retracted, finished quickly to decrease risk of aspiration. There was no evidence of any gastric varices. The patient had evidence of at least 2 or 3 columns of grade 1 and 2 esophageal varices without any stigmata. These varices were easily decompressed with air insufflation. So, no banding was done. SUMMARY OF FINDINGS: 1. Incomplete endoscopy given the solid food in the stomach. 2. Esophageal varices, grade 1/2 without any stigmata. RECOMMENDATIONS: Resume diet. The patient is to follow as an outpatient for further workup and treatment of her cirrhosis. Start the patient on Xifaxan 550 mg b.i.d. given the elevated ammonia level. I want to thank Dr. Tipton for this kind referral. Bhanu Fulton M.D. DR: FERNANDEZ JOB#: [id number] CC: Blaze Tipton M.D.; Fax#: [phone]
--- NOTE | 2017-09-06 23:29 | Pulmonology Progress Note ---
Assessment/Plan Problems: (1) HTN (hypertension) (2) Hepatitis C (3) Gastrointestinal hemorrhage Assessment/Plan h/h stable GI f/u, endoscopy incomplete pt signed AMA, pt was seen earlier. Subjective ROS Limited/Unobtainable: No Allergies: Coded Allergies: CODEINE (Verified Allergy, Unknown, 07/25/17) Objective Last 24 Hour Vital Signs Date Time Temp Pulse Resp B/P (MAP) Pulse Ox O2 Delivery O2 Flow Rate FiO2 09/06/17 13:05 97.9 66 16 155/94 99 Room Air 09/06/17 12:42 67 23 160/88 99 Room Air 09/06/17 12:41 61 22 100 09/06/17 12:37 60 13 163/83 99 Room Air 09/06/17 12:32 97.9 61 24 177/68 100 Simple Mask 6.0 09/06/17 08:00 97.8 61 20 129/88 97 Room Air 09/06/17 04:47 97.2 59 19 126/84 97 Room Air 09/06/17 00:00 97.9 60 20 139/97 99 Room Air Intake and Output 09/05/17 09/06/17 19:00 07:00 Intake Total 500 ml 1150 ml Balance 500 ml 1150 ml Intake IV Total 500 ml 1150 ml # Voids 1 3 General Appearance: WD/WN HEENT: normocephalic, atraumatic Breasts: no masses Cardiovascular: normal rate Abdomen: normal bowel sounds, soft, non tender Extremities: no cyanosis Skin: no ulcers Neurologic/Psychiatric: no motor/sensory deficits, alert Laboratory Tests 09/06/17 07:00: Prothrombin Time 15.2H, Prothromb Time International Ratio 1.4H, Sodium Level 139, Potassium Level 3.9, Chloride Level 110H, Carbon Dioxide Level 23, Anion Gap 6, Blood Urea Nitrogen 10, Creatinine 1.1, Estimat Glomerular Filtration Rate > 60, Glucose Level 199#H, Calcium Level 6.5L, Total Bilirubin 3.6H, Direct Bilirubin 1.9H, Aspartate Amino Transf (AST/SGOT) 81H, Alanine Aminotransferase (ALT/SGPT) 76, Alkaline Phosphatase 126H, Total Protein 7.2, Albumin 1.7L, Globulin 5.5, Albumin/Globulin Ratio 0.3L, Amylase Level 74, Lipase 270 09/06/17 09:30: White Blood Count 3.5L, Red Blood Count 3.62L, Hemoglobin 12.3, Hematocrit 37.1 , Mean Corpuscular Volume 103H, Mean Corpuscular Hemoglobin 34.1H, Mean Corpuscular Hemoglobin Concent 33.2, Red Cell Distribution Width 14.0, Platelet Count 65L, Mean Platelet Volume 10.3H, Neutrophils (%) (Auto) , Lymphocytes (%) (Auto) , Monocytes (%) (Auto) , Eosinophils (%) (Auto) , Basophils (%) (Auto) , Differential Total Cells Counted 100, Neutrophils % (Manual) 44L, Lymphocytes % (Manual) 29, Monocytes % (Manual) 17H, Eosinophils % (Manual) 9H, Basophils % ( Manual) 1, Band Neutrophils 0, Platelet Estimate DecreasedL, Platelet Morphology Normal, Red Blood Cell Morphology Normal, Activated Partial Thromboplast Time 36H ARACELI AUGUST Sep 06, 2017 23:29
--- NOTE | 2017-09-08 13:48 | Discharge Summary ---
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
--- NOTE | 2017-09-09 06:30 | Discharge Summary 2 SIG ---
DATE OF ADMISSION: 09/03/2017 DATE OF DISCHARGE: 09/06/2017 REASON FOR ADMISSION: The patient is a 57-year-old female with past medical history of liver cirrhosis, hepatitis C, prediabetes, hypertension, and pacemaker, presented to emergency department with a complaint of rectal pain for the last three days. She reported nosebleeding as well. The patient was noncompliant with her medication for the liver cirrhosis. The patient was not on any blood thinners. She denied fever, chills, chest pain, and shortness of breath, but reported abdominal pain 10/10 on a scale 1 to 10, nonradiating with some nausea. Laboratory workup revealed elevated LFT and very low platelet count. INR 1.4. Lipase 591. CT of the abdomen and pelvis revealed evidence of abdominal varices and liver cirrhosis. Troponin was within normal limits. EKG revealed sinus nikita with frequent PVCs. The patient was admitted for further management with diagnoses of rectal bleeding, liver cirrhosis, thrombocytopenia, transaminitis, coagulopathy, abdominal varices, elevated lipase, hepatitis C, hypertension, pacemaker and prediabetes. HOSPITAL COURSE: The patient was admitted to telemetry floor. Counts were closely monitored. GI consult was requested. The patient started on the IV fluids and kept NPO. The patient started on octreotide drip and Protonix b.i.d. GI scheduled EGD for 09/06/2017. Initial ammonia level within normal limits. LFT, lipase, and amylase were closely followed. Pain management provided. Antiemetic provided as needed. The patient was given one time vitamin K. Blood pressure was closely monitored and managed with the current medication regimen. Hemoglobin A1c was checked since the patient stated she had a prediabetes and it was actually - 7.7. The plan was to start the patient on oral anti-glycemic after endoscopy. The patient was transferred to Medical/Surgical floor since her hemoglobin and hematocrit remained stable. Venous duplex of bilateral lower extremities was negative. Subsequently on 09/06/2017, the patient undergone upper endoscopy, which revealed no abdominal varices, but showed esophageal varices grade 1-2 without any stigmata. GI recommended resume feeding and follow up as outpatient for further workup and treatment of the cirrhosis. The patient noted to have ammonia that morning at 150. The patient was started on Xifaxan 550 mg b.i.d. when the patient came back on the floor. Patient decided to sign against medical advice. The risks and consequences of signing against medical advice were discussed with the patient. The patient was asked to wait for a call from the doctor to discharge; however, the patient was adamant to sign the form and leave at that time. The patient verbalized understanding of the risks and consequences of AMA. Nevertheless, the patient signed the form and left. FINAL DIAGNOSES: 1. Rectal bleeding. 2. Liver cirrhosis. 3. Thrombocytopenia. 4. Transaminitis. 5. Coagulopathy. 6. Esophageal varices. 7. Elevated lipase. 8. Hepatitis C. 9. Hepatic encephalopathy. 10. Hypertension. 11. Pacemaker. 12. Diabetes, (new onset from prediabetes) . Blaze Tipton M.D. [facility] N.PFloresita DR: NAE JOB#: [id number] CC: KAYLA
--- NOTE | 2017-09-11 15:54 | Cardiology Report ---
APPROVED REPORT EKG Measurement Heart [id number] AV sequential pacemaker Abnormal ECG
== END 2017-09-06 14:35 | disposition left against medical advice (07) | DRG 253 ==
LOC: EMR 20:58 → 2E 22:13 → EDBEDREQ 23:30 → 4E 09-05 15:29
PROC: 0DJ08ZZ Inspection of Upper Intestinal Tract, Via Natural or Artificial Opening Endoscopic (ICD-10-PCS; principal; 2017-09-03)
DX: K62.5 Hemorrhage of anus and rectum (principal); D68.9 Coagulation defect, unspecified; I85.10 Secondary esophageal varices without bleeding; D69.6 Thrombocytopenia, unspecified; K74.60 Unspecified cirrhosis of liver; R74.0 Nonspecific elevation of levels of transaminase and lactic acid dehydrogenase [LDH]; B19.20 Unspecified viral hepatitis C without hepatic coma; R00.1 Bradycardia, unspecified; I10 Essential (primary) hypertension; K29.70 Gastritis, unspecified, without bleeding; Z53.21 Procedure and treatment not carried out due to patient leaving prior to being seen by health care provider; Z91.14 Patient's other noncompliance with medication regimen; K72.90 Hepatic failure, unspecified without coma; E11.9 Type 2 diabetes mellitus without complications; Z95.0 Presence of cardiac pacemaker; I49.3 Ventricular premature depolarization
CPT/HCPCS: 36415; 74177; 80053; 81003; 82140; 82150; 82248; 83036; 83690; 84484; 85007; 85025; 85610; 85730; 86705; 86709; 86803; 86850; 86900; 86901; 87340; 93005; 93970; 94003; 94150; 99285